=== PATIENT | male | born 1955 | race Caucasian/White ===

== ENCOUNTER 2022-02-12 10:36 | Emergency (ER) | payer SELFPAY ==
[~2022-02-12] VITALS: Ht 205.7 cm; Wt 84.1 kg
[2022-02-12] MEDS ORDERED: LIDOCAINE 2%/EPI 1:100,000 20 ML VIAL. INJ ONE (11:15)
[2022-02-12] MEDS ORDERED: NEOMY/BACITR/POLYMYXIN OINT PACKET. TP ONE (11:15)
--- NOTE | 2022-02-12 11:18 | ED.ADGEN ---
Past Medical History Additional Past Medical Histor: orthostatic hypotension, dialysis M,W,F, hiatal hernia Past Surgical History: Other Additional Past Surgical Histo: hernia repair, finger repair General Adult EDM: Chief Complaint: LACERATION/AVULSION HPI: HPI: Patient is a 66 year old male coming in from home via EMS after a fall from his wheelchair. Patient states he has a history of orthostatic hypotension and numerous episodes of "passing out". Patient states that he was unable to get himself back into his wheelchair due to a recent stroke. Patient's home health was unable to get him back into his chair at. EMS was called due to lacerations on his right forearm. Patient denies any head or neck pain. Patient states he initially did not want to come to the emergency department but was convinced to due to the lacerations. Patient was recently released from the [facility] after his stroke. Last tetanus 1.5 months ago. Review of Systems: Review of Systems: All other systems within normal limits except for as noted in the HPI Current Medications: Current Medications Medications (Trade) Dose Ordered Sig/Fiona Start Time Stop Time Status Last Admin Dose Admin Lidocaine/ Epinephrine (LIDOCAINE 2%-EPI 1:100,000 multi-dose) 20 ml 1X ONCE 02/12/22 11:15 02/12/22 11:18 DC Neomycin/ Polymyxin/ Bacitracin (Triple Antibiotic Ointment) 1 pkt 1X ONCE 02/12/22 11:15 02/12/22 11:18 DC 02/12/22 11:55 1 PKT Allergies: Allergies: Allergies Coded Allergies Type Severity Reaction Last Updated Verified No Known Drug Allergies 02/12/22 No Physical Exam: PE: Constitutional: Well developed, well nourished, no acute distress, non-toxic appearance. [] HENT: Normocephalic, atraumatic, bilateral external ears normal, nose normal. [] Eyes: PERRLA, conjunctiva normal, no discharge. [] Neck: No rigidity, supple, no stridor. [] Cardiovascular: Regular rate and rhythm, brisk cap refill [] Lungs & Thorax: Non labored symmetric respirations, no tachypnea or respiratory distress [] Abdomen: Soft, nondistended. Skin: Warm, dry, no erythema, no rash. 4 cm laceration on right proximal forearm, numerous superficial skin avulsions [] Back: Unremarkable Extremities: No deformities, range of motion grossly intact, no lower extremity edema [] Neurologic: Alert and oriented X 3 Psychologic: Affect normal, judgement normal, mood normal. [] Current Patient Data: Vital Signs: Vital Signs Date Time Temp Pulse Resp B/P (MAP) Pulse Ox O2 Delivery O2 Flow Rate FiO2 02/12/22 11:48 84 16 159/84 (109) 99 Room Air 02/12/22 10:40 97.6 97.6 EKG: EKG: [] Heart Score: C/O Chest Pain: No Risk Factors: Risk Factors: DM, Current or recent (<one month) smoker, HTN, HLP, family history of CAD, obesity. Risk Scores: Score 0 - 3: 2.5% MACE over next 6 weeks - Discharge Home Score 4 - 6: 20.3% MACE over next 6 weeks - Admit for Clinical Observation Score 7 - 10: 72.7% MACE over next 6 weeks - Early Invasive Strategies Radiology/Procedures: Radiology/Procedures: [] Course & Med Decision Making: Course & Med Decision Making Declining any work-up, states that his symptoms are chronic and have been thoroughly worked up in the past. Patient declining sutures, would like to have wound closed with Steri-Strips. We will send patient with extra Steri-Strips to replace and wrapped the area with Coban to keep them on. Wound is borderline deep in the middle but patient state would rather do Steri-Strips. Dragon Disclaimer: Dragon Disclaimer: This electronic medical record was generated, in whole or in part, using a voice recognition dictation system. Departure Departure Impression: Primary Impression: Fall from wheelchair Additional Impression: Laceration of right upper arm Disposition: HOME / SELF CARE / HOMELESS Condition: STABLE Patient Instructions: Stitches, Aristeo or Skin Adhesive Strips, [id number]-[id number] Problem Qualifiers ILIA MERLOS MD Feb 12, 2022 11:18
[2022-02-12 12:18] VITALS: BP 170/91
--- NOTE | 2022-02-13 04:49 | EKG ---
[facility] [address] [place] [address] Test Date: 2022-02-12 Test Time: 10:46:01 Pat Name: ERIC LOPEZ Department: Room: Gender: M [employer] Automatic: : 1955 Requested By: ILIA MERLOS Order Number: [id number] Reading MD: Lucho Pérez MD Measurements Intervals [place] Rate: 91 P: -90 [place]: 140 QRS: 43 QRSD: 82 T: 69 QT: 402 QTc: 503 Interpretive Statements SR Electronically Signed On 02-15-2022 7:12:04 CDT by Lucho Pérez MD
== END 2022-02-12 14:22 | disposition home or self-care (01) ==
LOC: ER 10:36
DX: S51.811A Laceration without foreign body of right forearm, initial encounter (principal); I95.1 Orthostatic hypotension; Z98.890 Other specified postprocedural states; Z99.2 Dependence on renal dialysis; W05.0XXA Fall from non-moving wheelchair, initial encounter; Y93.89 Activity, other specified; Y92.89 Other specified places as the place of occurrence of the external cause; Y99.8 Other external cause status
CPT/HCPCS: 93005; 99284